=== PATIENT | female | born 2005 | race Hispanic/Latino ===

== ENCOUNTER 2024-03-13 21:36 | Emergency (ER) | payer SELFPAY ==
--- OUTSIDE RECORDS SUMMARY | 2024-03-13 21:40 | XMS REPORT | Continuity of Care Document ---
Author Name Unknown Address [address] [facility] [address] [place] [address] [facility] thconnect Address [address] [facility] [address] [place] [address] Care Team Providers Care Metallurgical Technician Name Role Phone Pcp, Patient Does Not Have A Primary Care Physic ryan Adelaida Moore Attending Clinician Unavailable Francisco MOHR, Magali Thomas Attending Clinician BRENTON Renteria Attending Clinician Unavailable Only, Dk Db Test Attending Clinician Unavailabl e Unknown, Attending Attending Clinician Unavailab tony Nurse, [facility] Attending Clinician Liudmila Phillips MD Attending Clinician Lizzy Pinzon Attending Clinician Doctor Unassigned, [place] Attending Clinician LIZZY Amezcua Attending Clinician Pastora jimenez Pcp, Patient Does Not Have A Attending Clinician Payers Payer Name Policy Type Policy Number Effective Date Expirati on Date Source Problems Condition Name Condition Details Condition Category Status Onset Date Resolution Date Last Treatment Date Treating Clinician Comments Source [id number] Severe major depression Problem [facility] No known active problems No known active problems Disease [facility] Allergies, Adverse Reactions, Alerts Allergy Name Allergy Type Status Severity Reaction(s) Onset Date Inactive Date Treating Clinician Comments Source NO KNOWN ALLERGIE S Drug Class Active [facility] Social History Social Habit Start Date Stop Date Quantity Comments Source History of Tobacco Use [facility] Sex Assigned At [facility] Exposure to SARS-CoV-2 (event) Not sure [facility] Smoking Status Start Date Stop Date Source Never Smoker [facility] Unknown if ever smoked [facility] Medications Ordered Medication Name Filled Medication Name Start Date Stop Date Current Medication? Ordering Clinician Indication Dosage Frequency Signature (SIG) Comments Components Source Loratadine 10 MG Loratadine 10 MG - 00:00: 00 No 1{table t} QD Loratadine 10 MG Amoxicillin -Pot Clavulanate 875-125 MG Amoxicillin -Pot Clavulanate 875-125 MG 5- 00:00: 00 No 1{table t} BID Amoxicilli n-Pot Clavulanat e 875-125 MG Fluticasone Propionate 50 MCG/ACT Fluticasone Propionate 50 MCG/ACT 5-02 00:00: 00 No 1{spray _in_eac h_nostr il} QD Fluticason e Propionate 50 MCG/ACT [facility] Care Technician a 3-18 00:00: 00 No 150mg [facility] Depo-Health Care Technician a Depo-Health Care Technician a 2022-10 2-18 00:00: 00 No 50mg [facility] Depo-Health Care Technician a Depo-Health Care Technician a 2022-10 00:00: 00 No 50mg [facility] Depo-Health Care Technician a Depo-Health Care Technician a 2022-10 00:00: 00 No 50mg [facility] Depo-Health Care Technician a Depo-Health Care Technician a 2022-10 00:00: 00 No 50mg [facility] Depo-Health Care Technician a Depo-Health Care Technician a 2022-10 00:00: 00 No 50mg [facility] Depo-Health Care Technician a Depo-Health Care Technician a 06-17 00:00: 00 No 150mg [facility] Depo-Health Care Technician a Depo-Health Care Technician a 06-17 00:00: 00 No 150mg [facility] Depo-Health Care Technician a Depo-Health Care Technician a 06-17 00:00: 00 No 150mg [facility] Depo-Health Care Technician a Depo-Health Care Technician a 06-17 00:00: 00 No 150mg [facility] Depo-Health Care Technician a Depo-Health Care Technician a 06-17 00:00: 00 No 150mg [facility] Depo-Health Care Technician a Depo-Health Care Technician a 06-17 00:00: 00 No 150mg [facility] Depo-Health Care Technician a Depo-Health Care Technician a 06-17 00:00: 00 No 150mg [facility] Depo-Health Care Technician a Depo-Health Care Technician a 06-17 00:00: 00 No 150mg [facility] Depo-Health Care Technician a Depo-Health Care Technician a 03-25 00:00: 00 No 150mg [facility] Depo-Health Care Technician a Depo-Health Care Technician a 03-25 00:00: 00 No 150mg [facility] Depo-Health Care Technician a Depo-Health Care Technician a 03-25 00:00: 00 No 150mg [facility] Depo-Health Care Technician a Depo-Health Care Technician a 03-25 00:00: 00 No 150mg [facility] Depo-Health Care Technician a Depo-Health Care Technician a 03-25 00:00: 00 No 150mg [facility] Depo-Health Care Technician a Depo-Health Care Technician a 03-25 00:00: 00 No 150mg [facility] Depo-Health Care Technician a Depo-Health Care Technician a 03-25 00:00: 00 No 150mg [facility] Depo-Health Care Technician a Depo-Health Care Technician a 03-25 00:00: 00 No 150mg [facility] Depo-Health Care Technician a Depo-Health Care Technician a 12-30 00:00: 00 No 150mg [facility] Depo-Health Care Technician a Depo-Health Care Technician a 12-30 00:00: 00 No 150mg [facility] Depo-Health Care Technician a Depo-Health Care Technician a 12-30 00:00: 00 No 150mg [facility] Depo-Health Care Technician a Depo-Health Care Technician a 12-30 00:00: 00 No 150mg [facility] Depo-Health Care Technician a Depo-Health Care Technician a 12-30 00:00: 00 No 150mg [facility] Depo-Health Care Technician a Depo-Health Care Technician a 12-30 00:00: 00 No 150mg [facility] Depo-Health Care Technician a Depo-Health Care Technician a 12-30 00:00: 00 No 150mg [facility] Depo-Health Care Technician a Depo-Health Care Technician a 12-30 00:00: 00 No 150mg [facility] Depo-Health Care Technician a Depo-Health Care Technician a 2021-10 00:00: 00 No 150ug [facility] Depo-Health Care Technician a Depo-Health Care Technician a 2021-10 00:00: 00 No 150ug [facility] Depo-Health Care Technician a Depo-Health Care Technician a 2021-10 00:00: 00 No 150ug [facility] Depo-Health Care Technician a Depo-Health Care Technician a 2021-10 00:00: 00 No 150ug [facility] Depo-Health Care Technician a Depo-Health Care Technician a 2021-10 00:00: 00 No 150ug [facility] Depo-Health Care Technician a Depo-Health Care Technician a 2021-10 00:00: 00 No 150ug [facility] Depo-Health Care Technician a (Medroxypro gesterone ac) Depo-Health Care Technician a (Medroxypro gesterone ac) 2021-10 00:00: 00 No 150ug [facility] Depo-Health Care Technician a (Medroxypro gesterone ac) Depo-Health Care Technician a (Medroxypro gesterone ac) 2021-10 00:00: 00 No 150ug [facility] Depo-Health Care Technician a Depo-Health Care Technician a 2021-10 00:00: 00 No 150ug [facility] Depo-Health Care Technician a Depo-Health Care Technician a 2021-10 00:00: 00 No 150ug [facility] Depo-Health Care Technician a Depo-Health Care Technician a 2021-10 00:00: 00 No 150ug [facility] Depo-Health Care Technician a Depo-Health Care Technician a 2021-10 00:00: 00 No 150ug [facility] Depo-Health Care Technician a (Medroxypro gesterone ac) Depo-Health Care Technician a (Medroxypro gesterone ac) 2021-10 0 00:00: 00 No 150ug [facility] Depo-Health Care Technician a Depo-Health Care Technician a 2021-10 00:00: 00 No 150ug [facility] Depo-Health Care Technician a Depo-Health Care Technician a 2021-10 00:00: 00 No 150ug [facility] Depo-Health Care Technician a Depo-Health Care Technician a 2021-10 00:00: 00 No 150ug [facility] Depo-Health Care Technician a Depo-Health Care Technician a 2021-10 00:00: 00 No 150ug [facility] Depo-Health Care Technician a (Medroxypro gesterone ac) Depo-Health Care Technician a (Medroxypro gesterone ac) 2021-10 0 00:00: 00 No 150ug [facility] Depo-Health Care Technician a (Medroxypro gesterone ac) Depo-Health Care Technician a (Medroxypro gesterone ac) 2021-10 00:00: 00 No 150ug [facility] Depo-Health Care Technician a (Medroxypro gesterone ac) Depo-Health Care Technician a (Medroxypro gesterone ac) 2021-10 0 00:00: 00 No 150ug [facility] Depo-Health Care Technician a Depo-Health Care Technician a 2021-10 00:00: 00 No 150ug [facility] Depo-Health Care Technician a Depo-Health Care Technician a 2021-10 00:00: 00 No 150ug [facility] Depo-Health Care Technician a Depo-Health Care Technician a 04-22 00:00: 00 No 150ug [facility] Depo-Health Care Technician a Depo-Health Care Technician a 04-22 00:00: 00 No 150ug [facility] Depo-Health Care Technician a (Medroxypro gesterone ac) Depo-Health Care Technician a (Medroxypro gesterone ac) 04-22 00:00: 00 No 150ug [facility] Depo-Health Care Technician a Depo-Health Care Technician a 04-22 00:00: 00 No 150ug [facility] Depo-Health Care Technician a Depo-Health Care Technician a 04-22 00:00: 00 No 150ug [facility] Depo-Health Care Technician a Depo-Health Care Technician a 04-22 00:00: 00 No 150ug [facility] Depo-Health Care Technician a Depo-Health Care Technician a 04-22 00:00: 00 No 150ug [facility] Depo-Health Care Technician a (Medroxypro gesterone ac) Depo-Health Care Technician a (Medroxypro gesterone ac) 04-22 00:00: 00 No 150ug [facility] Depo-Health Care Technician a (Medroxypro gesterone ac) Depo-Health Care Technician a (Medroxypro gesterone ac) 04-22 00:00: 00 No 150ug [facility] Depo-Health Care Technician a (Medroxypro gesterone ac) Depo-Health Care Technician a (Medroxypro gesterone ac) 04-22 00:00: 00 No 150ug [facility] Depo-Health Care Technician a Depo-Health Care Technician a 04-22 00:00: 00 No 150ug [facility] Depo-Health Care Technician a Depo-Health Care Technician a 04-22 00:00: 00 No 150ug [facility] ondansetron (ZOFRAN-ODT ) disintegrat ing tablet 4 mg 04-25 01:30: 00 04-25 00:29 :00 No [id number] 4mg [facility] ondansetron 4 mg disintegrat ing tablet 04-24 00:00: 00 Yes [id number] 4mg Take 1 tablet by mouth every 8 (eight) hours as needed for Nausea and Vomiting (N/V). [facility] ergocalcife rol, vitamin d2, 1,250 mcg (50,000 unit) capsule 12-11 00:00: 00 Yes [id number] Take 50,000 Units by mouth weekly. [facility] No Known Medications No Known Medications No [facility] Lexapro 5 MG Lexapro 5 MG No 1{table t} QD Lexapro 5 MG QUEtiapine Fumarate 50 MG QUEtiapine Fumarate 50 MG No QUEtiapine Fumarate 50 MG No Known Medications No Known Medications No [facility] No Known Medications No Known Medications No [facility] No Known Medications No Known Medications No [facility] No Known Medications No Known Medications No [facility] Lexapro 5 MG Lexapro 5 MG No 1{table t} QD Lexapro 5 MG QUEtiapine Fumarate 50 MG QUEtiapine Fumarate 50 MG No QUEtiapine Fumarate 50 MG QUEtiapine Fumarate 50 MG QUEtiapine Fumarate 50 MG No QUEtiapine Fumarate 50 MG Lexapro 5 MG Lexapro 5 MG No 1{table t} QD Lexapro 5 MG QUEtiapine Fumarate 50 MG QUEtiapine Fumarate 50 MG No QUEtiapine Fumarate 50 MG Lexapro 5 MG Lexapro 5 MG No 1{table t} QD Lexapro 5 MG No Known Medications No Known Medications No [facility] Immunizations Ordered Immunization Name Filled Immunization Name Date Status Comments Source Boostrix (Tdap) Boostrix (Tdap) Unknown Completed [facility] Boostrix (Tdap) Boostrix (Tdap) Unknown Completed [facility] Boostrix (Tdap) Boostrix (Tdap) Unknown Completed [facility] Boostrix (Tdap) Boostrix (Tdap) Unknown Completed [facility] Boostrix (Tdap) Boostrix (Tdap) Unknown Completed [facility] Boostrix (Tdap) Boostrix (Tdap) Unknown Completed [facility] Boostrix (Tdap) Boostrix (Tdap) Unknown Completed [facility] Boostrix (Tdap) Boostrix (Tdap) Unknown Completed [facility] Boostrix (Tdap) Boostrix (Tdap) Unknown Completed [facility] Boostrix (Tdap) Boostrix (Tdap) Unknown Completed [facility] Boostrix (Tdap) Boostrix (Tdap) Unknown Completed [facility] Vital Signs Vital Name Observation Time Observation Value Comments S ource height 2024-02-09 11:00:00 60 [in_i] [facility] weight 2024-02-09 11:00:00 125 [lb_av] [facility] bmi 2024-02-09 11:00:00 24.41 kg/m2 [facility] height 2023-12-26 11:00:00 60 [in_i] [facility] weight 2023-12-26 11:00:00 121.8 [lb_av] Co mmon [facility] temperature 2023-12-26 11:00:00 97.3 [degF] Com mon [facility] bmi 2023-12-26 11:00:00 23.78 kg/m2 [facility] oximetry 2023-12-26 11:00:00 99 % [facility] respiratory rate 2023-12-26 11:00:00 16 /min [facility] blood pressure systolic 2023-12-26 11:00:00 115 mm[Hg] Common [facility] blood pressure diastolic 2023-12-26 11:00:00 78 mm[Hg] [facility] height 2023-09-26 10:00:00 60 [in_i] [facility] weight 2023-09-26 10:00:00 119 [lb_av] Comm [facility] temperature 2023-09-26 10:00:00 97.8 [degF] Com [facility] bmi 2023-09-26 10:00:00 23.24 kg/m2 [facility] oximetry 2023-09-26 10:00:00 99 % [facility] respiratory rate 2023-09-26 10:00:00 16 /min [facility] blood pressure systolic 2023-09-26 10:00:00 118 mm[Hg] [facility] blood pressure diastolic 2023-09-26 10:00:00 70 mm[Hg] Common [facility] height 2023-07-22 10:40:00 60 [in_i] [facility] weight 2023-07-22 10:40:00 119.0 [lb_av] Co [facility] temperature 2023-07-22 10:40:00 97.7 [degF] Com [facility] bmi 2023-07-22 10:40:00 23.24 kg/m2 [facility] oximetry 2023-07-22 10:40:00 97 % [facility] respiratory rate 2023-07-22 10:40:00 16 /min [facility] blood pressure systolic 2023-07-22 10:40:00 112 mm[Hg] [facility] blood pressure diastolic 2023-07-22 10:40:00 68 mm[Hg] Common [facility] height 2023-06-17 11:00:00 60 [in_i] [facility] weight 2023-06-17 11:00:00 118.6 [lb_av] [facility] temperature 2023-06-17 11:00:00 97.7 [degF] Com [facility] bmi 2023-06-17 11:00:00 23.16 kg/m2 [facility] oximetry 2023-06-17 11:00:00 99 % [facility] respiratory rate 2023-06-17 11:00:00 16 /min [facility] blood pressure systolic 2023-06-17 11:00:00 118 mm[Hg] [facility] blood pressure diastolic 2023-06-17 11:00:00 60 mm[Hg] [facility] height 2023-03-25 11:20:00 60 [in_i] [facility] weight 2023-03-25 11:20:00 118.6 [lb_av] [facility] temperature 2023-03-25 11:20:00 97.7 [degF] Com [facility] bmi 2023-03-25 11:20:00 23.16 kg/m2 [facility] oximetry 2023-03-25 11:20:00 98 % [facility] respiratory rate 2023-03-25 11:20:00 16 /min [facility] blood pressure systolic 2023-03-25 11:20:00 116 mm[Hg] [facility] blood pressure diastolic 2023-03-25 11:20:00 63 mm[Hg] [facility] height 2023-01-03 08:00:00 60 [in_i] [facility] weight 2023-01-03 08:00:00 127 [lb_av] [facility] temperature 2023-01-03 08:00:00 98.2 [degF] Com [facility] bmi 2023-01-03 08:00:00 24.8 kg/m2 [facility] oximetry 2023-01-03 08:00:00 99 % [facility] respiratory rate 2023-01-03 08:00:00 16 /min [facility] blood pressure systolic 2023-01-03 08:00:00 126 mm[Hg] [facility] blood pressure diastolic 2023-01-03 08:00:00 70 mm[Hg] [facility] height 2022-12-30 16:00:00 60 [in_i] [facility] weight 2022-12-30 16:00:00 126.2 [lb_av] [facility] temperature 2022-12-30 16:00:00 98.1 [degF] Com [facility] bmi 2022-12-30 16:00:00 24.64 kg/m2 [facility] oximetry 2022-12-30 16:00:00 99 % [facility] respiratory rate 2022-12-30 16:00:00 15 /min [facility] blood pressure systolic 2022-12-30 16:00:00 118 mm[Hg] [facility] blood pressure diastolic 2022-12-30 16:00:00 68 mm[Hg] Common [facility] height 2022-10-07 11:00:00 60 [in_i] [facility] weight 2022-10-07 11:00:00 115.4 [lb_av] [facility] temperature 2022-10-07 11:00:00 97.4 [degF] Com [facility] bmi 2022-10-07 11:00:00 22.54 kg/m2 [facility] oximetry 2022-10-07 11:00:00 99 % [facility] respiratory rate 2022-10-07 11:00:00 16 /min [facility] blood pressure systolic 2022-10-07 11:00:00 122 mm[Hg] [facility] blood pressure diastolic 2022-10-07 11:00:00 68 mm[Hg] [facility] height 2022-07-22 15:00:00 60 [in_i] [facility] weight 2022-07-22 15:00:00 111.8 [lb_av] [facility] temperature 2022-07-22 15:00:00 98.4 [degF] Com [facility] bmi 2022-07-22 15:00:00 21.83 kg/m2 [facility] oximetry 2022-07-22 15:00:00 99 % [facility] respiratory rate 2022-07-22 15:00:00 16 /min [facility] blood pressure systolic 2022-07-22 15:00:00 105 mm[Hg] [facility] blood pressure diastolic 2022-07-22 15:00:00 77 mm[Hg] [facility] height 2022-05-06 08:00:00 60 [in_i] [facility] weight 2022-05-06 08:00:00 111.8 [lb_av] [facility] temperature 2022-05-06 08:00:00 98.5 [degF] Com [facility] bmi 2022-05-06 08:00:00 21.83 kg/m2 [facility] oximetry 2022-05-06 08:00:00 100 % [facility] respiratory rate 2022-05-06 08:00:00 16 /min [facility] blood pressure systolic 2022-05-06 08:00:00 102 mm[Hg] [facility] blood pressure diastolic 2022-05-06 08:00:00 73 mm[Hg] [facility] Systolic blood pressure 2021-04-25 00:04:00 117 mm[Hg] [facility] Diastolic blood pressure 2021-04-25 00:04:00 75 mm[Hg] [facility] Heart rate 2021-04-25 00:04:00 91 /min [facility] Body temperature 2021-04-25 00:04:00 36.5 [facility] Respiratory rate 2021-04-25 00:04:00 20 /min [facility] Body height 2021-04-25 00:04:00 149.9 cm [facility] Body weight 2021-04-25 00:04:00 54.069 kg [facility] BMI 2021-04-25 00:04:00 24.08 kg/m2 [facility] Oxygen saturation in Arterial blood by Pulse oximetry 2021-04-25 00:04:00 97 /min [facility] Systolic blood pressure 2021-01-21 22:23:00 102 mm[Hg] [facility] Diastolic blood pressure 2021-01-21 22:23:00 64 mm[Hg] [facility] Heart rate 2021-01-21 22:23:00 82 /min [facility] Body temperature 2021-01-21 22:23:00 36.28 [facility] Respiratory rate 2021-01-21 22:23:00 22 /min [facility] Body weight 2021-01-21 22:23:00 57.788 kg [facility] Oxygen saturation in Arterial blood by Pulse oximetry 2021-01-21 22:23:00 98 /min [facility] Procedures Procedure Date / Time Performed Performing Clinicia n Source POCT GRP A STREP (MOLECULAR) 2021-04-25 00:23:00 Liudmila Peoples [facility] ASSIGNMENT OF BENEFITS 2021-04-24 23:55:36 Docto r Unassigned, [place] [facility] POCT GRP A STREP (MOLECULAR) 2021-01-21 22:37:00 Lizzy Basurto [facility] Encounters Start Date/Time End Date/Time Encounter Type Admission Type Attending [facility] Facility Care Department Encounter ID Source 2024-02-09 08:45:00 Outpatient Adelaida Moore STLML[facility] [id number] [facility] 2023-07-20 09:18:00 Outpatient Adelaida Moore [facility] [id number] [facility] 2023-03-09 14:35:01 Outpatient Adelaida Moore [facility] [id number] [facility] 2022-12-31 12:32:01 Outpatient Adelaida Moore [facility] [id number] [facility] 2022-12-30 08:48:01 Outpatient Adelaida Moore [facility] [id number] [facility] 2022-07-15 10:18:03 Outpatient Adelaida Moore [facility] [id number] [facility] 2022-05-06 08:00:01 Outpatient Adelaida Moore STLMLC ST[facility] [id number] [facility] 2024-02-09 00:00:00 2024-02-09 00:00:00 OFFICE VISIT ESTAB PT LEVEL 3 [facility] ST[facility] [id number] [facility] 2024-02-09 00:00:00 2024-02-09 00:00:00 (TEL) [facility] ST[facility] [id number] [facility] 2024-02-08 00:00:00 2024-02-08 00:00:00 (TEL) [facility] ST[facility]C [id number] [facility] 2023-12-26 00:00:00 2023-12-26 00:00:00 OFFICE VISIT ESTAB PT LEVEL 2 [facility] ST[facility] [id number] [facility] 2023-09-26 00:00:00 2023-09-26 00:00:00 OFFICE VISIT ESTAB PT LEVEL 2 [facility] ST[facility] [id number] [facility] 2023-08-04 00:00:00 2023-08-04 00:00:00 (TEL) ST[facility]C STL[facility]C [id number] [facility] 2023-07-22 00:00:00 2023-07-22 00:00:00 PREV VISIT EST AGE 18-39 [facility] STLMLC [id number] [facility] 2023-06-17 00:00:00 2023-06-17 00:00:00 OFFICE VISIT ESTAB PT LEVEL 1 [facility] STLMLC [id number] [facility] 2023-03-25 00:00:00 2023-03-25 00:00:00 OFFICE VISIT ESTAB PT LEVEL 3 [facility] STL[facility]C [id number] [facility] 2023-01-03 00:00:00 2023-01-03 00:00:00 OFFICE VISIT ESTAB PT LEVEL 3 [facility] STL[facility]C [id number] [facility] 2022-12-30 00:00:00 2022-12-30 00:00:00 OFFICE VISIT ESTAB PT LEVEL 1 [facility] ST[facility]C [id number] [facility] 2022-11-04 00:00:00 2022-11-04 00:00:00 (TEL) [facility] [id number] [facility] [facility] 2022-10-07 00:00:00 2022-10-07 00:00:00 OFFICE VISIT ESTAB PT LEVEL 1 STLMLC STLMLC [id number] [facility] 2022-07-22 00:00:00 2022-07-22 00:00:00 OFFICE VISIT ESTAB PT LEVEL 1 STLMLC STLMLC [id number] [facility] 2022-05-06 00:00:00 2022-05-06 00:00:00 OFFICE VISIT EST PT LEVEL 3 STLMLC STLMLC [id number] [facility] 2021-10-14 00:00:00 2021-10-14 00:00:00 Telephone Magali Singh [place] 1.840.114 350.1.13.10 4.2.7.2.686 [id number] [facility] 2021-10-13 11:15:00 2021-10-13 11:41:23 Outpatient R [facility]ON [facility] [id number] [facility] 2021-10-13 11:15:00 2021-10-13 11:30:00 Laboratory Only Only, Ang Db Test Unknown, Attending [facility] 1.2.840.114 350.1.13.10 4.2.7.2.686 [id number] [facility] 2021-05-04 00:00:00 2021-05-04 00:00:00 Telephone [facility] 1..840.114 350.1.13.10 4.2.7.2.686 [id number] [facility] 2021-04-25 00:00:00 2021-04-25 00:00:00 Telephone Liudmila Peoples [facility] 1..840.114 350.1.13.10 4.2.7.2.686 [id number] [facility] 2021-04-24 18:55:50 2021-04-24 19:37:39 Urgent Care Liudmila Peoples Kimberly J [facility] 1..840.114 350.1.13.10 4.2.7.2.686 [id number] [facility] 2021-04-24 19:00:00 2021-04-24 19:00:00 Outpatient R [facility] [id number] [facility] 2021-04-24 00:00:00 2021-04-24 00:00:00 Orders Only Doctor Unassigned, [place] 1.840.114 350.1.13.10 4.2.7.2.686 [id number] [facility] 2021-01-21 17:18:25 2021-01-21 17:38:25 Urgent Care Lizzy Basurto [facility] One 1.840.114 350.1.13.10 4.2.7.2.686 [id number] [facility] 2021-01-21 17:20:00 2021-01-21 17:20:00 Outpatient R LIZZY BASURTO [facility] [id number] [facility] 2021-01-21 00:00:00 2021-01-21 00:00:00 Letter (Out) Pcp, Patient Does Not Have A [facility] One 1.840.114 350.1.13.10 4.2.7.2.686 [id number] [facility] Results Test Description Test Time Test Comments Results Result Co mments Source URIC [id number] 00:00:00* Test Item Value Reference Range Interpretation Comme [facility] UR[facility] ACID (test code = 2501-5) 3.4 MG/DL See_Comment [[employer]] The system which generated this result transmitted reference range: 2.7-6.1 MG/DL. The reference range was not used to interpret this result as normal/abnormal. HEMOGLOBIN [id number] 00:00:00* Test Item Value Reference Range Interpretation Comme [facility] HEMOGLOBIN A1c (test code = 4548-4) 5.3 % See_Comment [Automated [employer]] The system which generated this result transmitted reference range: 4.2-5.6 %. The reference range was not used to interpret this result as normal/abnormal. TSH REFLEX TO FREE [id number] 00:00:00* Test Item Value Reference Range Interpretation Comme [facility] TSH REFLEX TO FREE T4 (test code = 33142-0) 1.230 UIU/ML See_Comment [Automated [employer]] The system which generated this result transmitted reference range: 0.400-4.100 UIU/ML. The reference range was not used to interpret this result as normal/abnormal. RPR REFLEX TO [id number] 00:00:00* Test Item Value Reference Range Interpretation Comme nts RPR (test code = 28019-5) NON-REACTIVE NON-REACTIVE RPR TITER (test code = 87464-8) NOT INDIC. TITER NOT INDIC. TITER HIV 1/2 4TH GEN, RFLX [id number] 00:00:00* Test Item Value Reference Range Interpretation Comme nts HIV 1/2 4TH GEN, RFLX CONF ( test code = 84169-3) NON-REACTIVE NON-REACTIVE TRICHOMONAS, URINE, [id number] 00:00:00* Test Item Value Reference Range Interpretation Comme nts TRICHOMONAS, NAAT, URINE (te st code = 10569-1) NEGATIVE NEGATIVE UA, MICROSCOPIC, REFLEX TO [id number] 00:00:00* Test Item Value Reference Range Interpretation Comme nts APPEARANCE (test code = 5767-9) CLEAR CLEAR BACTERIA (test code = 06621-6) NONE SEEN NONE SEEN BILIRUBIN (test code = 5770-3) NEGATIVE NEGATIVE CASTS, HYALINE (test code = 19416-6) NONE SEEN NONE-TRACE COLOR (test code = 5778-6) YELLOW YELLOW-STRAW EPITHELIAL CELLS (test code = 20159-0) 0-5 /HPF See_Comment [Automated [employer]] The system which generated this result transmitted reference range: 0-10 /HPF. The reference range was not used to interpret this result as normal/abnormal. GLUCOSE (test code = 5792-7) NEGATIVE NEGATIVE KETONES (test code = 5797-6) NEGATIVE NEGATIVE LEUKOCYTE ESTERASE (test code = 5799-2) NEGATIVE NEGATIVE NITRITE (test code = 5802-4) NEGATIVE NEGATIVE OCCULT BLOOD (test code = 08755-7) NEGATIVE NEGATIVE pH (test code = 5803-2) 7.0 5.0-9.0 PROTEIN (test code = 68899-1) NEGATIVE NEGATIVE RED BLOOD CELLS (test code = 50157-3) 0-2 /HPF See_Comment [Automated [employer]] The system which generated this result transmitted reference range: 0-2 /HPF. The reference range was not used to interpret this result as normal/abnormal. SPECIFIC GRAVITY (test code = 5811-5) 1.022 1.005-1.035 UROBILINOGEN (test code = 91836-7) 0.2 MG/DL See_Comment [Automated messa ge] The system which generated this result transmitted reference range: <=2.0 MG/DL. The reference range was not used to interpret this result as normal/abnormal. WHITE BLOOD CELLS (test code = 79721-2) 0-5 /HPF See_Comment [Automated messa ge] The system which generated this result transmitted reference range: 0-5 /HPF. The reference range was not used to interpret this result as normal/abnormal. LIPID PANEL WITH REFLEX DIRECT [id number] 00:00:00* Test Item Value Reference Range Interpretation Comme nts CALC LDL CHOL (test code = 43145-4) 74 MG/DL See_Comment [Automated messa ge] The system which generated this result transmitted reference range: <100 MG/DL. The reference range was not used to interpret this result as normal/abnormal. CHOLESTEROL (test code = 2093-3) 127 MG/DL See_Comment [Automated messa ge] The system which generated this result transmitted reference range: <200 MG/DL. The reference range was not used to interpret this result as normal/abnormal. HDL CHOLESTEROL (test code = 2085-9) 39 MG/DL See_Comment L [Automated messa ge] The system which generated this result transmitted reference range: >39 MG/DL. The reference range was not used to interpret this result as normal/abnormal. RISK RATIO LDL/HDL (test code = 31277-8) 1.90 RATIO See_Comment [Automated message] The system which generated this result transmitted reference range: <3.22 RATIO. The reference range was not used to interpret this result as normal/abnormal. TRIGLYCERIDES (test code = 2571-8) 68 MG/DL See_Comment [Automated messa ge] The system which generated this result transmitted reference range: <150 MG/DL. The reference range was not used to interpret this result as normal/abnormal. CT/NG, TMA, [id number] 00:00:00* Test Item Value Reference Range Interpretation Comme nts CHLAMYDIA, NAAT, URINE (test code = 69952-2) NEGATIVE NEGATIVE GONORRHEA, NAAT, URINE (test code = 89669-3) NEGATIVE NEGATIVE COMPREHENSIVE METABOLIC [id number] 00:00:00* Test Item Value Reference Range Interpretation Comme nts ALBUMIN (test code = 1751-7) 4.7 G/DL See_Comment [Automated messa ge] The system which generated this result transmitted reference range: 3.5-5.2 G/DL. The reference range was not used to interpret this result as normal/abnormal. ALKALINE PHOSPHATASE (test code = 6768-6) 103 U/L See_Comment [Automated message] The system which generated this result transmitted reference range: 45-126 U/L. The reference range was not used to interpret this result as normal/abnormal. BILIRUBIN, TOTAL (test code = 1975-2) 0.6 MG/DL See_Comment [Automated message] The system which generated this result transmitted reference range: <=1.2 MG/DL. The reference range was not used to interpret this result as normal/abnormal. BUN (test code = 3094-0) 8 MG/DL See_Comment [Automated messa ge] The system which generated this result transmitted reference range: 6-20 MG/DL. The reference range was not used to interpret this result as normal/abnormal. CALCIUM (test code = 99628-2) 10.2 MG/DL See_Comment [Automated messa ge] The system which generated this result transmitted reference range: 8.5-10.5 MG/DL. The reference range was not used to interpret this result as normal/abnormal. CALC A/G RATIO (test code = 1759-0) 1.9 RATIO See_Comment [Automated messa ge] The system which generated this result transmitted reference range: 1.0-2.6 RATIO. The reference range was not used to interpret this result as normal/abnormal. CALC BUN/CREAT (test code = 3097-3) 13 RATIO See_Comment [Automated messa ge] The system which generated this result transmitted reference range: 6-28 RATIO. The reference range was not used to interpret this result as normal/abnormal. CALC GLOBULIN (test code = 56266-3) 2.5 G/DL See_Comment [Automated messa ge] The system which generated this result transmitted reference range: 2.1-3.7 G/DL. The reference range was not used to interpret this result as normal/abnormal. CARBON DIOXIDE (test code = 1962-8) 21 MEQ/L See_Comment [Automated messa ge] The system which generated this result transmitted reference range: 19-31 MEQ/L. The reference range was not used to interpret this result as normal/abnormal. CHLORIDE (test code = 5-0) 103 MEQ/L See_Comment [Automated messa ge] The system which generated this result transmitted reference range: 95-107 MEQ/L. The reference range was not used to interpret this result as normal/abnormal. CREATININE (test code = 2160-0) 0.60 MG/DL See_Comment [Automated messa ge] The system which generated this result transmitted reference range: 0.50-1.10 MG/DL. The reference range was not used to interpret this result as normal/abnormal. eGFR (2020 CKD-EPI) (test code = 42224-5) NO CALC ML/MIN/1.73 See_Comment [Automated message] The system which generated this result transmitted reference range: >60 ML/MIN/1.73. The reference range was not used to interpret this result as normal/abnormal. GLUCOSE (test code = 1558-6) 96 MG/DL See_Comment [Automated messa ge] The system which generated this result transmitted reference range: 70-99 MG/DL. The reference range was not used to interpret this result as normal/abnormal. POTASSIUM (test code = 2823-3) 5.1 MEQ/L See_Comment [Automated messa ge] The system which generated this result transmitted reference range: 3.5-5.4 MEQ/L. The reference range was not used to interpret this result as normal/abnormal. PROTEIN, TOTAL (test code = 2885-2) 7.2 G/DL See_Comment [Automated messa ge] The system which generated this result transmitted reference range: 6.1-8.3 G/DL. The reference range was not used to interpret this result as normal/abnormal. AST (test code = 1920-8) 17 U/L See_Comment [Automated messa ge] The system which generated this result transmitted reference range: 9-40 U/L. The reference range was not used to interpret this result as normal/abnormal. ALT (test code = 1742-6) 11 U/L See_Comment [Automated messa ge] The system which generated this result transmitted reference range: 5-40 U/L. The reference range was not used to interpret this result as normal/abnormal. SODIUM (test code = 2951-2) 138 MEQ/L See_Comment [Automated messa ge] The system which generated this result transmitted reference range: 133-146 MEQ/L. The reference range was not used to interpret this result as normal/abnormal. POCT GRP A STREP (MOLECULAR)2021-04-25 00:23:00* Test Item Value Reference Range Interpretation Comme nts POCT GP A STREP (test code = 77400-0) Negative Negative - Negative Lab Interpretation (test cod e = 69054-4) [facility]2021-[facility]-21 22:37:00* Test Item Value Reference Range Interpretation Comme nts POCT GP A STREP (test code = 44111-7) neg Negative - Negative Lab Interpretation (test cod e = 27406-8) [facility]
[2024-03-13 22:47] LABS: Absolute Eosinophils 0.1 K/uL (0-0.5); Absolute Lymphocytes (CBC) 2.4 K/uL (0.7-4.9); Absolute Monocytes 0.5 K/uL (0.1-1.3); Absolute Neutrophil 3.9 K/uL (1.8-8.0); Basophils % 0.5 % (0-1.3); Eosinophils % 1.8 % (0-4.4); Hematocrit 39.9 % (36.0-45.0); Hemoglobin 13.4 g/dL (12.0-15.0); Lymphocytes % 34.9 % (15.3-44.8); MCH 29.9 pg (27.0-35.0); MCHC 33.5 g/dL (32.0-36.0); MCV 89.1 fL (80-100); MPV 8.4 fL (7.6-11.3); Monocytes % 7.4 % (3.3-12.3); Neutrophils % 55.4 % (41.7-73.7); Nucleated Red Blood Cells % 0.1 % (0-0); Platelets 257 thou/uL (152-406); RBC Red Blood Cell Count 4.48 M/uL (3.86-4.86); Red Cell Distribution Width 12.9 % (12.1-15.2)
[2024-03-13 22:56] LABS: ALT/SGPT 31 U/L (13-56); AST/SGOT 16 U/L (15-37); Albumin 4.1 g/dL (3.4-5.0); Albumin/Globulin Ratio 1.1 (1.1-1.8); Alkaline Phosphatase 121 U/L (45-117); Anion Gap 7.9 mEq/L (5.0-15.0); BUN Blood Urea Nitrogen 9 mg/dL (7-18); Bicarbonate 27 mEq/L (21-32); Bilirubin Total 0.4 mg/dL (0.2-1.0); Globulin 3.7 g/dL (2.3-3.5); Glomerular Filtration Rate 128 ml/min (=/>90); Glucose Level 103 mg/dL (74-106); Lipase 34 U/L (13-75); Potassium 3.9 mEq/L (3.5-5.1); Protein, Total 7.8 g/dL (6.4-8.2); Sodium Level 137 mEq/L (136-145)
[2024-03-13 23:00] LABS: C-Reactive Protein < 2.90 mg/L (<3.00)
[2024-03-13 23:08] LABS: Sqamous Epithelial <5 /HPF (None Seen); Urine Bacteria None Seen /HPF (<20); Urine Culture Reflex Order NOT NEEDED; Urine Microscopic Reflex YN ORDER UMIC; Urine Mucus 1+ /HPF (None Seen); Urine RBC <5 /HPF (None Seen); Urine WBC <5 /HPF (<5)
[2024-03-13 23:09] LABS: Urine Bilirubin Negative (Negative); Urine Clarity Cloudy (Clear); Urine Color Yellow (Yellow); Urine Glucose Negative (Negative)
[2024-03-13 23:10] LABS: Urine Blood Negative (Negative); Urine Ketones Negative (Negative); Urine Nitrite Negative (Negative); Urine Protein Negative (Negative); Urine Urobilinogen Normal (Normal); Urine pH 6.5 (5.0-7.0)
--- NOTE | 2024-03-14 02:28 | ER ---
Nurse's Notes [facility] Name: Rebeca Sutton Age: 18 yrs Sex: Female : 2005 Arrival Date: 03/13/2024 Time: 21:36 Bed 9 Private MD: Diagnosis: Pelvic and perineal pain;Lower abdominal pain, unspecified Presentation: 03/13 21:44 Chief complaint: Patient states: "For the past week, I've had lower right sided mb9 abdominal pain that radiates to my pelvis.". Coronavirus screen: At this time, the client does not indicate any symptoms associated with coronavirus-19. Ebola Screen: No symptoms or risks identified at this time. Initial Sepsis Screen: Does the patient meet any 2 criteria? No. Patient's initial sepsis screen is negative. Does the patient have a suspected source of infection? No. Patient's initial sepsis screen is negative. Risk Assessment: Do you want to hurt yourself or someone else? Patient reports no desire to harm self or others. Onset of symptoms was March 13, 2024. 21:44 Method Of Arrival: Ambulatory mb9 21:44 Acuity: SOFIA 3 mb9 Triage Assessment: 21:45 General: Appears in no apparent distress. Behavior is calm, cooperative. Pain: mb9 Complains of pain in abdomen Pain radiates to pelvis. EENT: No signs and/or symptoms were reported regarding the EENT system. Neuro: Level of Consciousness is awake, alert, obeys commands, Oriented to person, place, time, situation, Appropriate for age. Cardiovascular: Patient's skin is warm and dry. Respiratory: Airway is patent Respiratory effort is even, unlabored, Respiratory pattern is regular, symmetrical. GI: Abdomen is flat, non-distended, Reports lower abdominal pain. : No signs and/or symptoms were reported regarding the genitourinary system. : Denies burning with urination. : Denies vaginal bleeding. Derm: Skin is pink, warm \\T\\ dry. Musculoskeletal: Range of motion: intact in all extremities. EVENT MARKETING COORDINATOR: 21:46 LMP N/A - Depo-provera, Not mb9 Historical: - Allergies: 21:45 No Known Allergies; mb9 - Home Meds: 21:45 None [Active]; mb9 - PMHx: 21:45 None; mb9 - PSHx: 21:45 None; mb9 - Immunization history:: Adult Immunizations up to date. - Infectious Disease History:: Denies. - Social history:: Smoking status: Patient denies any tobacco usage or history of. - Family history:: not pertinent. Screenin/05 00:10 [facility] ED Fall Risk Assessment (Adult) History of falling in the last 3 months, as6 including since admission No falls in past 3 months (0 pts) Confusion or Disorientation No (0 pts) Intoxicated or Sedated No (0 pts) Impaired Gait No (0 pts) Mobility Assist Device Used No (0 pt) Altered Elimination No (0 pt) Score/Fall Risk Level 0 - 2 = Low Risk Oriented to surroundings, Maintained a safe environment, Educated pt \\T\\ family on fall prevention, incl call for assistance when getting out of bed, Assessed \\T\\ reinforced patient's understanding of fall precautions. Abuse screen: Denies threats or abuse. Denies injuries from another. Nutritional screening: No deficits noted. Tuberculosis screening: No symptoms or risk factors identified. Assessment: 00:10 Reassessment: Patient appears in no apparent distress at this time. Patient and/or as6 family updated on plan of care and expected duration. Pain level reassessed. Patient is alert, oriented x 3, equal unlabored respirations, skin warm/dry/pink. Patient states feeling better. 02:39 Reassessment: Patient appears in no apparent distress at this time. Patient and/or jb4 family updated on plan of care and expected duration. Pain level reassessed. Patient is alert, oriented x 3, equal unlabored respirations, skin warm/dry/pink. Vital Signs: 03/13 21:44 BP 122 / 79; Pulse 86; Resp 18; Temp 98.4; Pulse Ox 100% ; Weight 57.61 kg; Height 4 mb9 ft. 11 in. ; Pain /10; 03/14 00:10 BP 114 / 76; Pulse 81; Resp 18 S; Pulse Ox 100% on R/A; as6 02:39 Pulse 78; Resp 16; Pulse Ox 100% on R/A; jb4 03/13 21:44 Body Mass Index 25.65 (57.61 kg, 149.86 cm) - Percentile 82.7 % 9 03/13 21:44 Pain Scale: Adult mb9 [place] Coma Score: 06:35 Eye Response: spontaneous(4). Motor Response: obeys commands(6). Verbal Response: sp4 oriented(5). Total: 15. ED Course: 03/13 21:39 Patient arrived in ED. mr 21:45 Triage completed. mb9 21:45 Jasmeet Alvarez MD is Attending Physician. sp4 21:45 Arm band placed on. mb9 21:47 Patient has correct armband on for positive identification. Adult w/ patient. mb9 22:18 Marc Coyle, RN is Primary Nurse. as6 22:30 CRP Sent. as6 22:30 CBC with Diff Sent. as6 22:30 CMP Sent. as6 22:30 Lipase Sent. as6 22:30 Test, Urine Sent. as6 22:30 Urinalysis w/ reflexes Sent. as6 22:30 Inserted saline lock: 20 gauge in right antecubital area, using aseptic technique. as6 Blood collected. 23:51 CT Abd/Pelvis - IV Contrast Only In Process Unspecified. [facility] 03/14 00:11 Provided Education on: awaiting CT results . Warm blanket given. as6 00:11 No provider procedures requiring assistance completed. as6 02:26 Lyndsay Soriano MD is Referral Physician. sp4 02:39 IV discontinued, intact, bleeding controlled, No redness/swelling at site. Pressure jb4 dressing applied. Administered Medications: No medications were administered Medication: 00:11 VIS not applicable for this client. as6 Outcome: 02:27 Discharge ordered by . sp4 02:39 Discharged to home ambulatory, jb4 02:39 Condition: stable 02:39 Discharge instructions given to patient, Instructed on discharge instructions, follow up and referral plans. Demonstrated understanding of instructions, follow-up care, 02:39 Patient left the ED. jb4 Signatures: Dispatcher [employer] [facility] Kady Sena, Reg Reg Jamison David, RN RN jb4 Marc Coyle, ONUR MOHR as6 Kady Maynard, RN RN Jasmeet Andrade MD MD sp4
--- NOTE | 2024-03-14 02:28 | EDPHYS ---
Physician Documentation [facility] Name: Rebeca Sutton Age: 18 yrs Sex: Female : 2005 Arrival Date: 03/13/2024 Time: 21:36 Bed 9 Private MD: ED Physician Jasmeet Alvarez HPI: 03/13 21:45 This 18 yrs old Female presents to ER via Ambulatory with complaints of sp4 Abdominal Pain. 03/14 06:35 Patient presents with right lower abdominal and right pelvic pain for the past week and sp4 a half. History of Depo-Provera last Depo-Provera injection December 2023. CLINICAL PARTNER: 03/13 21:46 LMP N/A - Depo-provera, Not mb9 Historical: - Allergies: 21:45 No Known Allergies; mb9 - Home Meds: 21:45 None [Active]; mb9 - PMHx: 21:45 None; mb9 - PSHx: 21:45 None; mb9 - Immunization history:: Adult Immunizations up to date. - Infectious Disease History:: Denies. - Social history:: Smoking status: Patient denies any tobacco usage or history of. - Family history:: not pertinent. ROS: 03/14 06:35 Constitutional: Negative for fever, chills, and weight loss, positive right lower sp4 quadrant abdominal pain, positive right pelvic pain All other systems are negative, Exam: 06:35 Constitutional: This is a well developed, well nourished patient who is awake, alert, sp4 and in no acute distress. Head/Face: Normocephalic, atraumatic. Eyes: Pupils equal round and reactive to light, extra-ocular motions intact. Lids and lashes normal. Conjunctiva and sclera are not injected. Cornea within normal limits. Periorbital areas with no swelling, redness, or edema. ENT: Nares patent. No nasal discharge, no septal abnormalities noted. Tympanic membranes are normal and external auditory canals are clear. Oropharynx with no redness, swelling, or masses, exudates, or evidence of obstruction, uvula midline. Mucous membranes moist. Neck: Trachea midline, no thyromegaly or masses palpated, and no cervical lymphadenopathy. Supple, full range of motion without nuchal rigidity, or vertebral point tenderness. Chest/axilla: Normal chest wall appearance and motion. Nontender with no deformity. No lesions are appreciated. Cardiovascular: Regular rate and rhythm with a normal S1 and S2. No gallops, murmurs, or rubs. Normal PMI, no JVD. No pulse deficits. Respiratory: Lungs have equal breath sounds bilaterally, clear to auscultation and percussion. No rales, rhonchi or wheezes noted. No increased work of breathing, no retractions or nasal flaring. Abdomen/GI: Soft, with normal bowel sounds. No distension or tympany. No guarding or rebound. No evidence of tenderness throughout. Back: No spinal tenderness. No costovertebral tenderness. Skin: Warm, dry with normal turgor. Normal color with no rashes, no lesions, and no evidence of cellulitis. MS/ Extremity: Pulses equal, no cyanosis. Neurovascular intact. Full, normal range of motion. Neuro: Awake and alert, GCS 15, oriented to person, place, time, and situation. Cranial nerves II-XII grossly intact. Motor strength 5/5 in all extremities. Sensory grossly intact. Psych: Awake, alert, with orientation to person, place and time. Behavior, mood, and affect are within normal limits Vital Signs: 03/13 21:44 BP 122 / 79; Pulse 86; Resp 18; Temp 98.4; Pulse Ox 100% ; Weight 57.61 kg; Height 4 mb9 ft. 11 in. ; Pain 5/10; 03/14 00:10 BP 114 / 76; Pulse 81; Resp 18 S; Pulse Ox 100% on R/A; as6 02:39 Pulse 78; Resp 16; Pulse Ox 100% on R/A; jb4 03/13 21:44 Body Mass Index 25.65 (57.61 kg, 149.86 cm) - Percentile 82.7 % mb9 03/13 21:44 Pain Scale: Adult mb9 Lizandro Coma Score: 06:35 Eye Response: spontaneous(4). Motor Response: obeys commands(6). Verbal Response: sp4 oriented(5). Total: 15. MDM: 03/13 21:50 Patient medically screened. sp4 03/14 02:24 Data reviewed: vital signs, nurses notes, lab test result(s), radiologic studies, CT sp4 scan. 02:26 ED course: FINDINGS: Thoracic: No significant abnormality. Hepatobiliary: No concerning sp4 hepatic lesion identified. The portal veins are patent. The gallbladder is unremarkable. No biliary ductal dilatation. Pancreas: Unremarkable. Spleen: Unremarkable. Gastrointestinal: No evidence of bowel obstruction or perienteric inflammation. The appendix is normal. Small to moderate stool burden. Adrenals: No abnormality identified in either adrenal gland. Renal: No concerning parenchymal abnormality in either kidney. No hydronephrosis or urolithiasis. Bladder/Reproductive: Unremarkable appearance of the urinary bladder by CT technique. Unremarkable CT appearance of the uterus and ovaries. Vascular/Lymphatics: No lymphadenopathy identified by CT size criteria. Abdominal aorta is normal in caliber. Musculoskeletal: No concerning osseous lesion identified. Fluid / peritoneum: No significant free fluid. No free intraperitoneal air identified. IMPRESSION No acute abnormality identified in the abdomen or pelvis by CT. Electronically signed by: Camila Odell MD 03/14/2024 12:08 AM CDT . 03/13 21:49 Order name: CBC with Diff; Complete Time: 02:18 sp4 03/13 21:49 Order name: CMP; Complete Time: 02:18 sp4 03/13 21:49 Order name: Lipase; Complete Time: 02:18 sp4 03/13 21:49 Order name: Test, Urine; Complete Time: 02:18 sp4 03/13 21:49 Order name: Urinalysis w/ reflexes; Complete Time: 02:18 sp4 03/13 21:49 Order name: CRP; Complete Time: 02:18 sp4 03/13 21:49 Order name: CT Abd/Pelvis - IV Contrast Only sp4 03/13 21:49 Order name: IV Saline Lock; Complete Time: 22:30 sp4 03/13 21:49 Order name: Labs collected and sent; Complete Time: 22:30 sp4 Administered Medications: No medications were administered Disposition Summary: 03/14/24 02:27 Discharge Ordered Notes: we recommend visit with CHICKEN CUTTER MD for further evaluation Location: Home sp4 Problem: new sp4 Symptoms: have improved sp4 Condition: Stable sp4 Diagnosis - Pelvic and perineal pain sp4 - Lower abdominal pain, unspecified sp4 Followup: sp4 - With: Lyndsay Soriano MD - When: 7 - 10 days - Reason: Recheck today's complaints Discharge Instructions: - Discharge Summary Sheet sp4 - Pelvic Pain, Female, [id number] sp4 Forms: - Patient Portal Instructions sp4 Signatures: Dispatcher [employer] Kady Greene RN RN mb9 Jasmeet Alvarez MD MD sp4 Corrections: (The following items were deleted from the chart) 03/13 21:50 21:50 CBC+H.LAB.BRZ ordered. EDMS EDMS 21:50 21:50 COMPREHENSIVE METABOLIC PANEL+C.LAB.BRZ ordered. EDMS EDMS 21:50 21:50 LIPASE+C.LAB.BRZ ordered. EDMS EDMS 21:50 21:50 Test, Urine+UC.LAB.BRZ ordered. EDMS EDMS 21:50 21:50 Urinalysis+U.LAB.BRZ ordered. EDMS EDMS 21:50 21:50 C-REACTIVE PROTEIN+C.LAB.BRZ ordered. EDMS EDMS
[2024-03-14 03:09] VITALS: BP 114/76; TEMP 98.4; O2SAT 100
--- NOTE | 2024-03-15 10:25 | RAD REPORT ---
EXAM DESCRIPTION: CT - Abdomen Pelvis W Contrast - 03/14/2024 6:51 am CLINICAL HISTORY: ABD PAIN. COMPARISON: None. TECHNIQUE: CT of the abdomen and pelvis was performed following intravenous administration of iodina afia contrast. Oral contrast was not administered. Axial, coronal, and sagittal soft tissue window rec onstructions were created and sent to PACS. This exam was performed according to our departmental dose-optimization program, which includes autom ated exposure control, adjustment of the mA and/or kV according to patient size and/or use of iterati ve reconstruction technique. FINDINGS: Thoracic: No significant abnormality. Hepatobiliary: No concerning hepatic lesion identified. The portal veins are patent. The gallbladder is unremarkable. No biliary ductal dilatation. Pancreas: Unremarkable. Spleen: Unremarkable. Gastrointestinal: No evidence of bowel obstruction or perienteric inflammation. The appendix is johnny l. Small to moderate stool burden. Adrenals: No abnormality identified in either adrenal gland. Renal: No concerning parenchymal abnormality in either kidney. No hydronephrosis or urolithiasis. Bladder/Reproductive: Unremarkable appearance of the urinary bladder by CT technique. Unremarkable CT appearance of the uterus and ovaries. Vascular/Lymphatics: No lymphadenopathy identified by CT size criteria. Abdominal aorta is normal in caliber. Musculoskeletal: No concerning osseous lesion identified. Fluid / peritoneum: No significant free fluid. No free intraperitoneal air identified. IMPRESSION No acute abnormality identified in the abdomen or pelvis by CT. Electronically signed by: Camila Odell MD 03/14/2024 12:08 AM CDT RP Due to temporary technical issues with the PACS/Fluency reporting system, reports are being signed by the in house radiologist without review as a courtesy to ensure prompt reporting. The interpreting r adiologist is fully responsible for the content of the report.
== END 2024-03-14 02:39 | disposition home or self-care (01) ==
LOC: ER 21:36
DX: R10.31 Right lower quadrant pain (principal); R10.2 Pelvic and perineal pain
CPT/HCPCS: 36415; 74177; 80053; 81001; 81025; 83690; 85025; 86140; 99284; Q9967